=== PATIENT | male | born 1990 | race African-American/Black ===

== ENCOUNTER 2019-11-22 10:30 | Emergency (ER) | payer BC ==
[2019-11-22] MEDS ORDERED: Ondansetron ODT 4 MG TAB ONE (12:04)
== END 2019-11-22 12:13 | disposition home or self-care (01) ==
LOC: MADERS 10:30
DX: M62.830 Muscle spasm of back (principal); R11.2 Nausea with vomiting, unspecified; I10 Essential (primary) hypertension; Z79.899 Other long term (current) drug therapy
CPT/HCPCS: 99283; Q0162